=== PATIENT | male | born 1975 | race African-American/Black ===

== ENCOUNTER 2018-01-02 08:00 | Emergency (ER) | payer BC, SELFPAY ==
--- OUTSIDE RECORDS SUMMARY | 2018-01-02 08:01 | XMS REPORT ---
:1975 [facility] Address [address] [place] [address] Care Team Providers Name Role Phone DR LEE SILVEIRA Unavailable Unavailable Problems This patient has no known problems. Allergies, Adverse Reactions, Alerts This patient has no known allergies or adverse reactions. Medications This patient has no known medications. Encounters Start End Encounter Admission Attending Care Care Encounter Date/Time Date/Time Type Type Clinicians Facility Department ID 2017-06-29 Inpatient Christine [facility] [id number] 09:45:00 LEE 2017-09-14 2017-09-14 Outpatient Christine SILVEIRA [facility] [id number] 08:02:00 10:30:00 LEE 2017-08-17 2017-08-17 Outpatient Christine SILVEIRA [facility] [id number] 11:43:00 14:00:00 LEE
--- NOTE | 2018-01-02 09:28 | RAD REPORT ---
EXAM DESCRIPTION: CT - C Spine Wo Con - 01/02/2018 9:01 am CLINICAL HISTORY: Radiculopathy and neck pain COMPARISON: None. TECHNIQUE: Computed axial tomography of the cervical spine were obtained with sagittal and coronal r econstruction images generated and reviewed. All CT scans are performed using dose optimization technique as appropriate and may include automated exposure control or mA/KV adjustment according to patient size. FINDINGS: A cervical fracture is not seen. Mild posterior subluxation of C5 on C6 is present. Broad-based central disc osteophyte complex narrow s the thecal sac which measures measures 7.5 millimeters. Moderate narrowing of the right neural fora michelle is seen. Spondylosis to a lesser degree is present at C4-5 A small bulging disc is present at C6-7 IMPRESSION: A cervical fracture is not seen. A broad-based central disc osteophyte complex C5-6 with mild posterior subluxation results in mild to moderate central and moderate right foraminal stenosis An MRI may be helpful for further evaluation.
[2018-01-02] MEDS ORDERED: KETOROLAC 30 MG/ML INJ ONE (09:35)
[2018-01-02] MEDS ORDERED: DEXAMETHASONE 10 MG/ML VIAL ONE (09:35)
[2018-01-02] MEDS ORDERED: HYDROCODONE/APAP 10/325 TAB ONE (09:38)
--- NOTE | 2018-01-02 09:52 | EDPHYS ---
Physician Documentation [facility] Name: Abhilash Choudhury Age: 42 yrs Sex: Male : 1975 Arrival Date: 01/02/2018 Time: 08:03 Bed 20 Private MD: None, None ED Physician Giovani Campos HPI: 01/02 08:57 This 42 yrs old Black Male presents to ER via Ambulatory with complaints of Neck shanon Problem. 08:57 The patient or guardian complains of decreased range of motion, pain. The symptoms are shanon located at the C1, C2, C3, C4, C5, C6 and C7. Onset: The symptoms/episode began/occurred 2 day(s) ago. Context: The problem was sustained at an unknown location. Associated signs and symptoms: The patient has no apparent associated signs or symptoms. Modifying factors: The symptoms are alleviated by remaining still. Severity of symptoms: At their worst the symptoms were mild, moderate, in the emergency department the symptoms are unchanged. Historical: - Allergies: 08:42 NKDA; em - Immunization history:: Adult Immunizations up to date. - Social history:: Smoking status: Patient/guardian denies using tobacco. - Family history:: not pertinent. ROS: 08:57 Constitutional: Negative for fever, chills, and weight loss, Eyes: Negative for injury, shanon pain, redness, and discharge, ENT: Negative for injury, pain, and discharge, Cardiovascular: Negative for chest pain, palpitations, and edema, Respiratory: Negative for shortness of breath, cough, wheezing, and pleuritic chest pain, Abdomen/GI: Negative for abdominal pain, nausea, vomiting, diarrhea, and constipation, Back: Negative for injury and pain, : Negative for injury, bleeding, discharge, and swelling, MS/Extremity: Negative for injury and deformity, Skin: Negative for injury, rash, and discoloration, Neuro: Negative for headache, weakness, numbness, tingling, and seizure, Psych: Negative for depression, anxiety, suicide ideation, homicidal ideation, and hallucinations, Allergy/Immunology: Negative for hives, rash, and allergies, Endocrine: Negative for neck swelling, polydipsia, polyuria, polyphagia, and marked weight changes, Hematologic/Lymphatic: Negative for swollen nodes, abnormal bleeding, and unusual bruising. 08:57 Neck: Positive for pain with movement, pain at rest, stiffness. Exam: 08:57 Constitutional: This is a well developed, well nourished patient who is awake, alert, shanon and in no acute distress. Head/Face: Normocephalic, atraumatic. Eyes: Pupils equal round and reactive to light, extra-ocular motions intact. Lids and lashes normal. Conjunctiva and sclera are non-icteric and not injected. Cornea within normal limits. Periorbital areas with no swelling, redness, or edema. ENT: Nares patent. No nasal discharge, no septal abnormalities noted. Tympanic membranes are normal and external auditory canals are clear. Oropharynx with no redness, swelling, or masses, exudates, or evidence of obstruction, uvula midline. Mucous membranes moist. Chest/axilla: Normal chest wall appearance and motion. Nontender with no deformity. No lesions are appreciated. Cardiovascular: Regular rate and rhythm with a normal S1 and S2. No gallops, murmurs, or rubs. Normal PMI, no JVD. No pulse deficits. Respiratory: Lungs have equal breath sounds bilaterally, clear to auscultation and percussion. No rales, rhonchi or wheezes noted. No increased work of breathing, no retractions or nasal flaring. Abdomen/GI: Soft, non-tender, with normal bowel sounds. No distension or tympany. No guarding or rebound. No evidence of tenderness throughout. Back: No spinal tenderness. No costovertebral tenderness. Full range of motion. Male : Normal genitalia with no discharge or lesions. Skin: Warm, dry with normal turgor. Normal color with no rashes, no lesions, and no evidence of cellulitis. MS/ Extremity: Pulses equal, no cyanosis. Neurovascular intact. Full, normal range of motion. Neuro: Awake and alert, GCS 15, oriented to person, place, time, and situation. Cranial nerves II-XII grossly intact. Motor strength 5/5 in all extremities. Sensory grossly intact. Cerebellar exam normal. Normal gait. Psych: Awake, alert, with orientation to person, place and time. Behavior, mood, and affect are within normal limits. 08:57 Neck: External neck: is normal, C-spine: appears grossly normal, no acute changes, Thyroid: appears normal, Trachea: is midline with no obvious abnormalities, ROM/movement: pain, that is mild, limited range of motion. Vital Signs: 08:40 BP 108 / 64; Pulse 87; Resp 18; Temp 97.8(TE); Pulse Ox 97% ; Pain 9/10; em 09:40 BP 132 / 82; Pulse 82; Resp 18; Pulse Ox 98% on R/A; Pain 7/10; iw MDM: 08:[address] [facility] 01/02 08:53 Order name: CT C Spine; Complete Time: 09:48 [facility] Administered Medications: 09:47 Drug: TORadol 60 mg Route: IM; Site: right gluteus; em 10:11 Follow up: Response: No adverse reaction; Pain is decreased em 09:47 Drug: [place] 10 mg-325 mg 1 tabs Route: PO; em 10:12 Follow up: Response: No adverse reaction; Pain is decreased em 09:47 Drug: Decadron 10 mg Route: IM; Site: right deltoid; em 10:12 Follow up: Response: No adverse reaction; Pain is decreased em Disposition: 01/02/18 09:52 Discharged to Home. Impression: Cervical disc disorders, Cervical disc disorder with radiculopathy, Subluxation of C5/C6 cervical vertebrae - with herniated disc, broad based, osteophytes present. - Condition is Stable. - Discharge Instructions: Cervical Radiculopathy, Soft Tissue Injury of the Neck, Cervical Sprain, Cervical Sprain, [id number], Soft Tissue Injury of the Neck, Krgp-[id number], Cervical Radiculopathy, [id number]. - Prescriptions for Ibuprofen 600 mg Oral Tablet - take 1 tablet by ORAL route every 6 hours As needed take with food; 20 tablet. Skelaxin 800 mg Oral Tablet - take 1 tablet by ORAL route every 8 hours As needed; 30 tablet. Tylenol- Codeine #3 300-30 mg Oral Tablet - take 2 tablet by ORAL route every 6 hours As needed; 30 tablet. Medrol (Jorge A) 4 mg Oral Tablets, Dose Pack - take 1 tablet by ORAL route as directed - follow package instructions; 1 packet. - Medication Reconciliation Form, Thank You Letter, Antibiotic Education, Prescription Opioid Use form. - Follow up: Private Physician; When: 2 - 3 days; Reason: Recheck today's complaints, Continuance of care, Re-evaluation by your physician. Follow up: Sanjay Hinojosa; When: 2 - 3 days; Reason: Recheck today's complaints, Re-evaluation by your physician. - Problem is new. - Symptoms have improved. Signatures: Dispatcher [employer] Giovani Brady MD MD cha Munoz, Edgar, SLITTER SERVICE AND SETTER SLITTER SERVICE AND SETTER
--- NOTE | 2018-01-02 09:52 | ER ---
Nurse's Notes [facility] Name: Abhilash Choudhury Age: 42 yrs Sex: Male : 1975 Arrival Date: 01/02/2018 Time: 08:03 Bed 20 Private MD: None, None Diagnosis: Cervical disc disorders;Cervical disc disorder with radiculopathy;Subluxation of C5/C6 cervical vertebrae-with herniated disc, broad based, osteophytes present Presentation: 01/02 08:11 Presenting complaint: Patient states: has had neck pain, throbbing all night. iw Transition of care: patient was not received from another setting of care. Onset of symptoms was January 02, 2018. 08:11 Method Of Arrival: Ambulatory iw 08:11 Acuity: SUSANNAH 4 iw 08:41 Initial Sepsis Screen: Does the patient meet any 2 criteria? No. Patient's initial em sepsis screen is negative. Does the patient have a suspected source of infection? No. Patient's initial sepsis screen is negative. Care prior to arrival: None. Historical: - Allergies: 08:42 NKDA; em - Immunization history:: Adult Immunizations up to date. - Social history:: Smoking status: Patient/guardian denies using tobacco. - Family history:: not pertinent. Screenin:42 Abuse screen: Denies threats or abuse. Nutritional screening: No deficits noted. em Tuberculosis screening: No symptoms or risk factors identified. Fall Risk None identified. Assessment: 10:02 General: Appears in no apparent distress. comfortable, Behavior is calm, cooperative. iw Pain: Complains of pain in neck Pain currently is 9 out of 10 on a pain scale. Neuro: Level of Consciousness is awake, alert, obeys commands, Oriented to person, place, time, situation, Moves all extremities. Gait is steady, Facial symmetry appears normal, Reports tingling in the left arm. Cardiovascular: Capillary refill < 3 seconds Patient's skin is warm and dry. Respiratory: Airway is patent Respiratory effort is even, unlabored, Respiratory pattern is regular, symmetrical. GI: Abdomen is flat. : No signs and/or symptoms were reported regarding the genitourinary system. EENT: No signs and/or symptoms were reported regarding the EENT system. Derm: Skin is intact, Skin is pink, warm \T\ dry. Musculoskeletal: Range of motion: intact in all extremities. Vital Signs: 08:40 BP 108 / 64; Pulse 87; Resp 18; Temp 97.8(TE); Pulse Ox 97% ; Pain 9/10; em 09:40 BP 132 / 82; Pulse 82; Resp 18; Pulse Ox 98% on R/A; Pain 7/10; iw ED Course: 08:03 Patient arrived in ED. mr 08:03 None, None is Private Physician. mr 08:11 Triage completed. iw 08:30 Giovani Campos MD is Attending Physician. [facility] 08:30 Mason Walden LVN is Primary Nurse. em 08:43 Patient has correct armband on for positive identification. Bed in low position. Call em light in reach. Side rails up X2. Adult w/ patient. 08:43 Arm band placed on. iw 09:01 CT completed. Patient tolerated procedure well. Patient moved to CT via wheelchair. sj Patient moved back from CT. 09:02 CT C Spine In Process Unspecified. EDMS 09:50 Sanjay Hinojosa MD is Referral Physician. shanon 10:05 No provider procedures requiring assistance completed. Patient did not have IV access iw during this emergency room visit. Administered Medications: 09:47 Drug: TORadol 60 mg Route: IM; Site: right gluteus; em 10:11 Follow up: Response: No adverse reaction; Pain is decreased em 09:47 Drug: [place] 10 mg-325 mg 1 tabs Route: PO; em 10:12 Follow up: Response: No adverse reaction; Pain is decreased em 09:47 Drug: Decadron 10 mg Route: IM; Site: right deltoid; em 10:12 Follow up: Response: No adverse reaction; Pain is decreased em Outcome: 09:52 Discharge ordered by . shanon 10:10 Discharged to home ambulatory. iw 10:10 Condition: good 10:10 Discharge instructions given to patient, Instructed on discharge instructions, follow up and referral plans. medication usage, Demonstrated understanding of instructions, follow-up care, medications, Prescriptions given X 4. 10:12 Patient left the ED. em Signatures: Dispatcher [employer] EDNY Giovani Campos MD MD cha Rivera, Maria Emmie Vela sj Mason Walden LVN LVN em Magda Owens RN RN iw
== END 2018-01-02 10:12 | disposition home or self-care (01) ==
LOC: ER 08:00
DX: M50.10 Cervical disc disorder with radiculopathy, unspecified cervical region (principal); M43.5X2 Other recurrent vertebral dislocation, cervical region; M25.78 Osteophyte, vertebrae
CPT/HCPCS: 72125; 96372; 99284; J1100

== ENCOUNTER 2021-01-12 08:22 | Day surgery (SDC) | payer BC ==
[2021-01-12] MEDS ORDERED: Ringers Lactate 1,000 ML IV ONE (09:18)
[2021-01-12] MEDS ORDERED: propofoL 200 MG/20 ML VIAL IV ONE (10:01)
[2021-01-12] MEDS ORDERED: LIDOCAINE 1% MPF 30 ML VIAL ONE (10:01)
--- NOTE | 2021-01-12 10:14 | ENDO RPT ---
[address], [address] EGD PROCEDURE REPORT EXAM DATE: 01/12/2021 PATIENT NAME: Abhilash Choudhury MR#: [id number] BIRTHDATE: 1975 ATTENDING: Daniel Rivera DR STATUS: outpatient CARPET WEAVER: Alee Baumann CST and Carmen Cedeño RN INDICATIONS: The patient is a 45 yr old Male here for an EGD due to mid epigastric abdominal pain PROCEDURE PERFORMED: EGD with biopsy for H. pylori MEDICATIONS: Per Anesthesia. TOPICAL ANESTHETIC: none CONSENT: The patient understands the risks and benefits of the procedure and understands that these risks include, but are not limited to: sedation, allergic reaction, infection, perforation and/or bleeding. Alternative means of evaluation and treatment include, among others: physical exam, x-rays, and/or surgical intervention. The patient elects to proceed with this endoscopic procedure. DESCRIPTION OF PROCEDURE: During intra-op preparation period all mechanical medical equipment was checked for proper function. Hand hygiene and appropriate measures for infection prevention was taken. Procedure, possible complications, and alternatives including but not limited to the possibility of bleeding, perforation, tear, infection, sepsis, need for surgery, need for blood transfusion, and anesthesia related complications were explained to the patient. After the risks, benefits and alternatives of the procedure were thoroughly explained, Informed consent was verified, confirmed and timeout was successfully executed by the treatment team. The patient was placed in the left lateral position. The patient was anesthetized with topical anesthesia. Through the anesthetized oropharyngeal area, the scope was passed without any difficulty. The EG-[id number] ([id number]) endoscope was introduced through the mouth and advanced to the second portion of the duodenum. Retroflexed views revealed no abnormalities. The gastroscope was then slowly withdrawn and removed. Multiple erosions were found in the total stomach. Multiple biopsies were obtained and sent to pathology. A biopsy for H. pylori was taken. Duodenitis was found in the bulb and descending duodenum. A biopsy for H. pylori was taken. LA Class A esophagitis was found in the gastroesophageal junction. A biopsy for H. pylori was taken. Moderate gastritis was found in the total stomach. A biopsy for H. pylori was taken. ADVERSE EVENTS: There were no complications. IMPRESSIONS: 1. Multiple erosions were found in the total stomach 2. Duodenitis was found in the bulb and descending duodenum 3. LA Class A esophagitis was found in the gastroesophageal junction 4. Moderate gastritis was found in the total stomach RECOMMENDATIONS: 1. acid suppression therapy 2. anti-reflux regimen 3. await biopsy results 4. follow-up: office 2 week(s) 5. avoid NSAIDS 6. follow-up of helicobacter pylori status, treat if indicated REPEAT EXAM: Pending Biopsy Daniel Rivera DR eSigned: Daniel Rivera DR 01/12/2021 10:14 AM cc: CPT CODES: ICD9 CODES: PATIENT NAME: Abhilash Choudhury MR#: [id number]
[2021-01-12 11:01] VITALS: BP 117/81; TEMP 97.1; O2SAT 100
== END 2021-01-12 11:05 | disposition home or self-care (01) ==
LOC: OR 08:22
PROVIDERS: ATTEND Surgery
PROC: 0DB78ZX Excision of Stomach, Pylorus, Via Natural or Artificial Opening Endoscopic, Diagnostic (ICD-10-PCS; 2021-01-12)
PROC: 0DB68ZX Excision of Stomach, Via Natural or Artificial Opening Endoscopic, Diagnostic (ICD-10-PCS; 2021-01-12)
PROC: 0DB48ZX Excision of Esophagogastric Junction, Via Natural or Artificial Opening Endoscopic, Diagnostic (ICD-10-PCS; 2021-01-12)
PROC: 0DB98ZX Excision of Duodenum, Via Natural or Artificial Opening Endoscopic, Diagnostic (ICD-10-PCS; principal; 2021-01-12 09:30)
DX: K29.50 Unspecified chronic gastritis without bleeding (principal); K25.9 Gastric ulcer, unspecified as acute or chronic, without hemorrhage or perforation; K29.80 Duodenitis without bleeding; K21.00 Gastro-esophageal reflux disease with esophagitis, without bleeding; Z20.822 Contact with and (suspected) exposure to COVID-19
CPT/HCPCS: 88312; 88305; 43239; U0003; J2704; J7120